=== PATIENT | male | born 1985 | race Caucasian/White ===

== ENCOUNTER 2018-01-23 07:36 | Day surgery (SDC) | payer OTHER ==
[2018-01-23] MEDS ORDERED: IODIXANOL LOCM 100 ML BTL (11:52)
[2018-01-23] MEDS ORDERED: MIDAZOLAM 1 MG/ML 2 ML INJ (11:52)
[2018-01-23] MEDS ORDERED: LIDOCAINE 1% (MDV) 10 ML INJ (11:52)
[2018-01-23] MEDS ORDERED: FENTAnyl 50 MCG/ML VIAL (11:52)
[2018-01-23] MEDS ORDERED: VERAPAMIL 5 MG INJ (11:52)
[2018-01-23] MEDS ORDERED: HEPARIN 1000 UNITS/ML 10 ML INJ (11:52)
[2018-01-23] MEDS ORDERED: NITROGLYCERIN (IC) 100 MCG/ML INJ (11:53)
[2018-01-23] MEDS ORDERED: SOD CHLORIDE 0.9% 1,000 ML IV (12:27)
[2018-01-23] MEDS ORDERED: ACETAMINOPHEN 325 MG TAB PO (12:30)
[2018-01-23] MEDS ORDERED: AL HYDROX/MG HYDROX/SIMETH 30 ML CUP PO (12:30)
[2018-01-23] MEDS ORDERED: morphine 2 MG INJ IV (12:30)
[2018-01-23] MEDS ORDERED: ONDANSETRON 4 MG INJ IV (12:30)
== END 2018-01-23 18:00 | disposition home or self-care (01) ==
LOC: CCL 07:36 → SDS 07:36
DX: I21.4 Non-ST elevation (NSTEMI) myocardial infarction (principal); I25.10 Atherosclerotic heart disease of native coronary artery without angina pectoris; I34.0 Nonrheumatic mitral (valve) insufficiency
CPT/HCPCS: 93458